=== PATIENT | female | born 1955 | race Caucasian/White ===

== ENCOUNTER → 2016-12-18 | Outpatient (CLI) | payer OTHER ==
--- NOTE | 2016-12-21 12:02 | MM ---
Reason for exam: screening (asymptomatic). Physical Findings: A clinical breast exam by your physician is recommended on an annual basis and results should be correlated with mammographic findings. MG Screening Mammo w CAD Bilateral CC and MLO view(s) were taken. There are scattered fibroglandular densities. No significant changes when compared with prior studies. ASSESSMENT: Benign, BI-RAD 2 RECOMMENDATION: Routine screening mammogram of both breasts in 1 year.
== END | disposition home or self-care (01) ==
LOC: RADMAMWWP 08:50
PROVIDERS: ATTEND Family Medicine
DX: Z12.31 Encounter for screening mammogram for malignant neoplasm of breast (principal)

== ENCOUNTER → 2019-05-22 | Outpatient (CLI) | payer BC ==
--- NOTE | 2019-05-23 10:50 | MM ---
Reason for exam: screening (asymptomatic). Last mammogram was performed 2 years and 5 months ago. History: Patient is nulliparous. Benign cyst aspiration of both breasts, 1999. Physical Findings: A clinical breast exam by your physician is recommended on an annual basis and results should be correlated with mammographic findings. MG Screening Mammo w CAD Bilateral CC and MLO view(s) were taken. XCCL view(s) were taken of the left breast. Prior study comparison: December 18, 2016, bilateral MG screening mammo w CAD. There are scattered fibroglandular densities. There is no discrete abnormality. No significant changes when compared with prior studies. ASSESSMENT: Negative, BI-RAD 1 RECOMMENDATION: Routine screening mammogram of both breasts in 1 year.
== END | disposition home or self-care (01) ==
LOC: RADMAMWWP 09:49
PROVIDERS: ATTEND Family Medicine
DX: Z12.31 Encounter for screening mammogram for malignant neoplasm of breast (principal)
CPT/HCPCS: 77067

== ENCOUNTER → 2021-12-12 | Outpatient (CLI) | payer MEDICARE, BC ==
--- NOTE | 2021-12-15 19:00 | MM ---
Reason for Exam: Screening (asymptomatic). Last mammogram was performed 2 year(s) and 6 month(s) ago. Patient History: Menarche at age 13. Patient has no children. Hysterectomy at age 40. Postmenopausal. 1999, Bilateral Benign Cyst Aspiration. Risk Values: Eva 5 year model risk: 1.9%. NCI Lifetime model risk: 6.7%. Prior Study Comparison: 12/18/2016 Bilateral Screening Mammogram, [facility]. 05/22/2019 Bilateral Screening Mammogram, [facility]. Tissue Density: There are scattered fibroglandular densities. Findings: Analyzed By CAD. There is no suspicious group of microcalcifications or new suspicious mass in either breast. Overall Assessment: Negative, BI-RAD 1 Management: Screening Mammogram of both breasts in 1 year. 1. Patient should continue monthly self breast exams. 2. A clinical breast exam by your physician is recommended on an annual basis. 3. This exam should not preclude additional follow-up of suspicious palpable abnormalities. Electronically signed and approved by: Scarlet Schafer M.D. Radiologist
== END | disposition home or self-care (01) ==
LOC: RADMAMWWP 16:00
PROVIDERS: ATTEND Family Medicine
DX: Z12.31 Encounter for screening mammogram for malignant neoplasm of breast (principal)
CPT/HCPCS: 77063; 77067

== ENCOUNTER 2022-01-28 08:03 | Day surgery (SDC) | payer MEDICARE, BC ==
[2022-01-28 08:41] VITALS: PULSE 82; TEMP 97.4
[2022-01-28] MEDS: LACTATED RINGERS 1,000 ML IV SCH ×2 (08:43→09:16)
[2022-01-28] MEDS ORDERED: PROPOFOL 10 MG/ML 20 ML VIAL IV ONE (09:21)
--- NOTE | 2022-01-28 09:35 | P.PCN ---
Date of Procedure: 01/28/22 Procedure(s) Performed: BRIEF HISTORY: Patient is a 66-year-old pleasant White female scheduled for an elective colonoscopy as a part of screening for colon cancer. PROCEDURE PERFORMED: Colonoscopy. PREOPERATIVE DIAGNOSIS: Screening for colon cancer. IV sedation per Anesthesia. PROCEDURE: After informed consent was obtained, the patient, was brought into the endoscopy unit. IV sedation was administered by Anesthesia under continuous monitoring. Digital rectal examination was normal. Initially the Olympus CF-160 flexible video colonoscope was then inserted in the rectum, gradually advanced into the cecum without any difficulty. Careful examination was performed as the scope was gradually being withdrawn. Ileocecal valve and the appendiceal orifice were visualized and appeared normal. Prep was excellent. Mucosa of the cecum, ascending colon, transverse colon, descending colon, sigmoid colon, and rectum appeared normal. Retroflexion was performed in the rectum and no lesions were seen. The patient tolerated the procedure well. IMPRESSION: Normal-appearing colon from rectum to cecum with no evidence of colorectal neoplasia . RECOMMENDATIONS: Findings of this examination were discussed with the patient well as her family. She was advised to have a repeat screening colonoscopy in 10 years..
[2022-01-28 09:57] VITALS: BP 111/76; RESP 15
== END 2022-01-28 10:08 | disposition home or self-care (01) ==
LOC: ORWHC2ENDO 08:03
PROVIDERS: ATTEND Internal Medicine Gastroenterology
DX: Z12.11 Encounter for screening for malignant neoplasm of colon (principal); J44.9 Chronic obstructive pulmonary disease, unspecified; F17.210 Nicotine dependence, cigarettes, uncomplicated; Z79.82 Long term (current) use of aspirin
CPT/HCPCS: J2704; G0121

== ENCOUNTER → 2022-01-29 | Outpatient (CLI) | payer MEDICARE, BC ==
--- NOTE | 2022-01-29 16:02 | US ---
EXAMINATION TYPE: US thyroid st tissue head/neck DATE OF EXAM: 01/29/2022 COMPARISON: NONE CLINICAL HISTORY: R22.1 SWELLING, MASS AND LUMP IN NECK. lump right neck for 4 days Scanned with patient's area of concern, right neck palpable, thyroid nodule visualized RIGHT Thyroid: # of nodules measured on right: 1 1. 2.9 X 3.3 x 2.9 cm, lower , mixed cystic and solid, isoechoic nodule, which is taller than wide, with smooth margins, without echogenic foci. TR 4 lesion Prior size: no prior Complete thyroid not imaged, only palpable requested. IMPRESSION: As above. Ultrasound-guided fine-needle aspiration is advised.
== END | disposition home or self-care (01) ==
LOC: RADUSWWP 15:24
PROVIDERS: ATTEND Family Medicine
DX: R22.1 Localized swelling, mass and lump, neck (principal)
CPT/HCPCS: 76536

== ENCOUNTER → 2022-12-21 | Outpatient (CLI) | payer MEDICARE, BC ==
--- NOTE | 2022-12-21 11:45 | US ---
EXAMINATION TYPE: US thyroid st tissue head/neck DATE OF EXAM: 12/21/2022 COMPARISON: 07/02/2022 CLINICAL INDICATION: Female, 67 years old with history of E04.1 SINGLE THYROID NODULE; hx of Rt thyro id nodules GLAND SIZE: Right Lobe: 5.4x1.7x2.2 cm Overall Parenchyma: homogenous Left Lobe: 4.9x1.9x1.8 cm Overall Parenchyma: slightly heterogenous Isthmus Thickness: 0.4 cm NODULES RIGHT: # of nodules measured on right: 2 1. 0.5 X 0.4 x 0.7 cm, mid mid, Prior size: 0.6 x 0.4 x 0.7 cm TIRADS Score: 4 TIRADS Category 4: Moderately Suspicious Composition: Solid or almost completely solid (2 points). Echogenicity: Hypoechoic (2 points). Shape: Wider than tall (0 points). Margin: Smooth (0 points). Echogenic foci: None or large comet-tail artifacts (0 points) Recommendation: If >1.5cm: FNA; If >1cm: Follow up at 1,2, 3,5 years 2. 0.9 X 1.1 x 0.8 cm, lower mid, Prior size: 1.3 x 1.5 x 1.1 cm TIRADS Score: 4 TIRADS Category 4: Moderately Suspicious Composition: Solid or almost completely solid (2 points). Echogenicity: Hypoechoic (2 points). Shape: Wider than tall (0 points). Margin: Smooth (0 points). Echogenic foci: None or large comet-tail artifacts (0 points) Recommendation: If >1.5cm: FNA; If >1cm: Follow up at 1,2, 3,5 years LEFT: # of nodules measured on left: 0 ISTHMUS: # of nodules measured in the isthmus: 0 Bilateral neck scanned, no evidence of lymphadenopathy. IMPRESSION: Right thyroid nodules which meet criteria for follow-up in 1 year.
== END | disposition home or self-care (01) ==
LOC: RADUSWWP 09:25
PROVIDERS: ATTEND Otolaryngology
DX: E04.2 Nontoxic multinodular goiter (principal)
CPT/HCPCS: 76536

== ENCOUNTER → 2023-03-03 | Outpatient (CLI) | payer MEDICARE, BC ==
--- NOTE | 2023-03-04 10:49 | MM ---
Reason for Exam: Screening (asymptomatic). Last mammogram was performed 1 year(s) and 3 month(s) ago. Patient History: Menarche at age 13. Patient has no children. Hysterectomy at age 40. Postmenopausal. 1999, Bilateral Benign Cyst Aspiration. Risk Values: Eva 5 year model risk: 1.9%. NCI Lifetime model risk: 6.4%. Prior Study Comparison: 12/18/2016 Bilateral Screening Mammogram, [facility]. 05/22/2019 Bilateral Screening Mammogram, [facility]. 12/12/2021 Bilateral MG 3D screening mammo w/cad, [facility]. Tissue Density: The breast tissue is almost entirely fat. Findings: Analyzed By CAD. There is no suspicious group of microcalcifications or new suspicious mass. Overall Assessment: Negative, BI-RAD 1 Management: Screening Mammogram of both breasts in [address] [facility] will attempt to contact patient to return for supplemental views and ultrasound if indicated. Patient should continue monthly self-breast exams. A clinical breast exam by your physician is recommended on an annual basis. This exam should not preclude additional follow-up of suspicious palpable abnormalities. Note on Eva scores and lifetime risk: 1. A Eva score greater than 3% is considered moderate risk. If this is the case, consider specialist referral to assess eligibility for a risk reducing agent. 2. If overall lifetime risk for the development of breast cancer is 20% or higher, the patient may qualify for future screening with alternating mammogram and breast MRI. Electronically signed and approved by: Bob Chavez DO
== END | disposition home or self-care (01) ==
LOC: RADMAMWWP 07:29
PROVIDERS: ATTEND Family Medicine
DX: Z12.31 Encounter for screening mammogram for malignant neoplasm of breast (principal); Z78.0 Asymptomatic menopausal state
CPT/HCPCS: 77067

== ENCOUNTER → 2023-03-09 | Outpatient (CLI) | payer MEDICARE, BC ==
--- NOTE | 2023-03-09 16:45 | CTL ---
EXAMINATION TYPE: CT Low Dose Lung DATE OF EXAM: 03/09/2023 4:13 PM CLINICAL INDICATION:Female, 67 years old with history of F17.210,Z12.2 ENCNTR SCREEN FOR MALIGNANT NE OPLASM; current smoker, 1 pack a day x40 years. , history of tobacco use. COMPARISON: None. TECHNIQUE: Multiple axial non-contrast scans were obtained from approximately the lung apices through the upper abdomen. Coronal and sagittal reformatted images were obtained. Low dose technique was uti lized. CT DLP: 66.60 mGycm, Automated exposure control for dose reduction was used. CT Contrast: Contrast used: None Oral contrast used: None FINDINGS: ======== Lack of intravenous contrast and low dose technique limits the evaluation of the vascular and soft ti ssue structures. LUNGS: No evidence of pulmonary fibrosis. No evidence of focal consolidation, pneumothorax or pleural effusion. Moderate emphysema changes. Nodules: RUL: None. RML: None. RLL: None. STEPHANIE: None. LLL: None. AIRWAY: Patent and unremarkable. HEART: Size within normal limits. Mild coronary artery calcifications. MEDIASTINUM: No gross evidence of adenopathy. VASCULATURE: No aortic aneurysm. MUSCULOSKELETAL: No acute osseous abnormalities SOFT TISSUES/LYMPH NODES: Unremarkable. LOWER NECK: No significant findings. UPPER ABDOMEN: Probable right central IMPRESSION: 1. No clinically significant pulmonary nodules. 2. Moderate emphysema predominantly in the lung apices. CT LUNG RAD AND CT CHEST RECOMMENDATION: Lung-Rad 1 Negative: Continue annual screening with LDCT in 12 months. S Modifier (other clinically significant findings): None Recommend smoking cessation (if current smoker), or continuation of smoking cessation (if prior smoke r). Annual screening for lung cancer with low-dose computed tomography is recommended in adults ages 55 to 77 years who have a 30 pack-year smoking history and currently smoke or have quit within the pa st 15 years. Screening should be discontinued once a person has not smoked for 15 years or develops a health problem that substantially limits life expectancy or the ability or willingness to have curat emily lung surgery. Lung rads 2021 [email or web address]
== END | disposition home or self-care (01) ==
LOC: RADCTMAIN 15:40
PROVIDERS: ATTEND Family Medicine
DX: Z12.2 Encounter for screening for malignant neoplasm of respiratory organs (principal); J43.9 Emphysema, unspecified; F17.210 Nicotine dependence, cigarettes, uncomplicated
CPT/HCPCS: 71271

== ENCOUNTER → 2023-09-14 | Outpatient (CLI) | payer MEDICARE, BC ==
--- NOTE | 2023-09-15 08:26 | US ---
EXAMINATION TYPE: US carotid duplex BILAT DATE OF EXAM: 09/14/2023 COMPARISON: NONE CLINICAL INDICATION: Female, 67 years old with history of Z91.89 OTH PERSONAL RISK FACTORS, NOT ELSEW HERE CL; High risk of cardiovascular disease per order. Hyperlipidemia, current smoker. TECHNIQUE: Carotid duplex ultrasound examination. Indirect Doppler criteria was utilized. FINDINGS: EXAM MEASUREMENTS: RIGHT: Peak Systolic Velocity (PSV) cm/sec ----- Right CCA: 73.2 ----- Right ICA: 94.4 ----- Right ECA: 66.2 ICA/CCA ratio: 1.3 RIGHT: End Diastole cm/sec ----- Right CCA: 25.9 ----- Right ICA: 37.3 ----- Right ECA: 14.7 LEFT: Peak Systolic Velocity (PSV) cm/sec ----- Left CCA: 75.7 ----- Left ICA: 69.4 ----- Left ECA: 78.2 ICA/CCA ratio: 0.9 LEFT: End Diastole cm/sec ----- Left CCA: 29.6 ----- Left ICA: 31.1 ----- Left ECA: 13.6 VERTEBRALS (direction of flow): Right Vertebral: Antegrade Left Vertebral: Antegrade Rhythm: Normal MARINE PROPULSION TECHNICIAN NOTES: Plaque seen within right bulb. No elevated velocities at this time. Smaller left c arotid plaque is evident. IMPRESSION: Criteria for Assigning % of Stenosis / Diameter reduction (Estimation based on the indirect measurements of the internal carotid artery velocities (ICA PSV). 1. Normal (no stenosis)=ICA PSV < 125 cm/s: ratio < 2.0: ICA EDV<40 cm/s. 2. Less than 50% stenosis=ICA PSV < 125 cm/s: ratio < 2.0: ICA EDV<40 cm/s. 3. 50 to 69% stenosis=ICA PSV of 125 to 230 cm/s: ration 2.0 ? 4.0: ICA EDV 40-100 cm/s. 4. Greater than 70% stenosis to near occlusion= ICA PSV > 230 cm/s: ratio > 4.0: ICA EDV > 100 cm/s. 5. Near occlusion= ICA PSV velocities may be low or undetectable: variable ratio and ICA EDV. 6. Total occlusion=unable to detect flow.
== END | disposition home or self-care (01) ==
LOC: RADUSWWP 15:29
PROVIDERS: ATTEND Family Medicine
DX: E78.5 Hyperlipidemia, unspecified (principal); Z91.89 Other specified personal risk factors, not elsewhere classified; Z87.891 Personal history of nicotine dependence
CPT/HCPCS: 93880

== ENCOUNTER → 2023-12-27 | Outpatient (CLI) | payer MEDICARE, BC ==
--- NOTE | 2024-02-16 09:51 | US ---
Site ID [facility] Alina Elkins ID [id number] Age/Gender: 68Y, F Order # N/A Procedure US thyroid st tissue head/neck Date 12/27/2023 4:21:00 PM EXAMINATION TYPE: US thyroid st tissue head/neck DATE OF EXAM: 01/10/2024 COMPARISON: Thyroid ultrasound 12/21/2022, 07/02/2022, 01/29/2022, FNA ultrasound 03/17/2022. CLINICAL INDICATION: Female, 68 year old with history of right thyroid nodules, follow-up. GLAND SIZE: Right Lobe: 5.5 x 2.3 x 1.7 cm Overall Parenchyma: homogeneous Left Lobe: 4.8 x 1.7 x 1.5 cm Overall Parenchyma: homogeneous Isthmus Thickness: 0.3 cm NODULES RIGHT: # of nodules measured on right: 2 1. 0.9 X 0.7 x 1.0 cm, mid , solid or almost completely solid, hypoechoic nodule, which is wider th an tall, with smooth margins, with echogenic foci. Previously biopsied. TR 4. Prior size: 0.9 x 0.8 x 1.1 cm 2. 0.6 X 0.4 x 0.7 cm, lower , solid or almost completely solid, hypoechoic nodule, which is wider than tall, with smooth margins, without echogenic foci. TR 4. Prior size: 0.5 x 0.4 x 0.7 cm LEFT: # of nodules measured on left: 0 ISTHMUS: # of nodules measured in the isthmus: 0 Bilateral neck scanned, no evidence of lymphadenopathy. IMPRESSION: Stable right thyroid nodules. No new or enlarging thyroid nodules. Follow-up thyroid ultrasound in on e year is recommended.
== END | disposition home or self-care (01) ==
LOC: RADUSWWP 12:00
PROVIDERS: ATTEND Family Medicine
DX: E04.1 Nontoxic single thyroid nodule
CPT/HCPCS: 76536

== ENCOUNTER → 2024-03-10 | Outpatient (CLI) | payer MEDICARE, BC ==
--- NOTE | 2024-03-10 10:37 | CTL ---
EXAMINATION TYPE: CT Low Dose Lung DATE OF EXAM ORDERED: 03/10/2024 COMPARISON: CT low-dose lung 03/09/2023 CLINICAL INDICATION: Female, 68 years old with history of Z12.2 SCREENING F17.210 NICOTINE DEPENDENCE ; PHH, personal hx of nicotine dependence 1/2ppd X 40 years current smoker, Lung cancer screening, Hi story of Smoking/tobacco use. TECHNIQUE: Low dose computed tomography scan was performed through the chest at 1 mm thick sections a nd reconstructed images in multiple planes at 1 mm and [address] DLP: 74.[address] CTDI: 2.1 mGy Automated exposure control for dose reduction was used. CT DIAGNOSTIC QUALITY: Satisfactory FINDINGS: Nodules: No clinically significant pulmonary nodules. LUNGS: COPD: Severity: Mild Fibrosis: Severity: None Lymph nodes: None Other findings: Linear scarring and atelectasis within the lingula RIGHT PLEURAL SPACE: Effusion: None Calcification: None Thickening: None Pneumothorax: None LEFT PLEURAL SPACE: Effusion: None Calcification: None Thickening: None Pneumothorax: None HEART: Heart Size: Normal Coronary Calcification: Small Pericardial Effusion: None OTHER FINDINGS: Upper abdomen: Stable central hepatic 1.9 cm cyst. Bony thorax: Minimal multilevel degenerative disc disease. Supraclavicular region: None Other: None IMPRESSION: 1. No clinically significant pulmonary nodules. 2. Mild COPD changes. CT LUNG RAD AND CT CHEST RECOMMENDATION: Lung-Rad 1 Negative: Continue annual screening with LDCT in 12 months. S Modifier (other clinically significant findings): None [facility], , 03/10/2024 10:34 AM
--- NOTE | 2024-03-13 18:06 | MM ---
Reason for Exam: Screening (asymptomatic). Last screening mammogram was performed 12 month(s) ago. Patient History: Menarche at age 13. Patient has no children. Hysterectomy at age 40. Postmenopausal. 1999, Bilateral Benign Cyst Aspiration. Risk Values: Eva 5 year model risk: 1.9%. NCI Lifetime model risk: 6.2%. Prior Study Comparison: 05/22/2019 Bilateral Screening Mammogram, [facility]. 12/12/2021 Bilateral MG 3D screening mammo w/cad, [facility]. 03/03/2023 Bilateral MG screening mammo w CAD, [facility]. Tissue Density: There are scattered areas of fibroglandular density. Findings: Analyzed By CAD. Unchanged lateral asymmetric density on the right. There is no suspicious group of microcalcifications or new suspicious mass in either breast. Overall Assessment: Benign, BI-RAD 2 Management: Screening Mammogram of both breasts in 1 year. . Patient should continue monthly self-breast exams. A clinical breast exam by your physician is recommended on an annual basis. This exam should not preclude additional follow-up of suspicious palpable abnormalities. Note on Eva scores and lifetime risk: 1. A Eva score greater than 3% is considered moderate risk. If this is the case, consider specialist referral to assess eligibility for a risk reducing agent. 2. If overall lifetime risk for the development of breast cancer is 20% or higher, the patient may qualify for future screening with alternating mammogram and breast MRI. [facility], , 03/13/2024 6:03 PM. Electronically signed and approved by: Scarlet Schafer M.D. Radiologist
== END | disposition home or self-care (01) ==
LOC: RADMAMWWP 09:34
PROVIDERS: ATTEND Family Medicine
CPT/HCPCS: 71271; 77063; 77067

== ENCOUNTER → 2024-08-11 | Outpatient (CLI) | payer MEDICARE, BC ==
--- NOTE | 2024-08-11 13:41 | MR ---
EXAMINATION TYPE: MR shoulder RT wo con DATE OF EXAM: 08/11/2024 1:33 PM COMPARISON: Outside right shoulder x-ray June 26, 2024 CLINICAL INDICATION: Female, 68 years old with history of M25.511 PAIN IN RIGHT SHOULDER, Right shoul efren pain, decreased ROM x 6 mos, no trauma. IV Contrast: cc (None if empty) TECHNIQUE: Multiplanar, multisequence imaging of the right shoulder is performed without contrast. FINDINGS: Rotator Cuff: Some increased signal in the infraspinatus tendon. More prominent increased signal in t he supraspinatus tendon. Some heterogeneous signal of the subscapularis tendon. Rotator cuff muscle b ulk is preserved. Acromioclavicular Joint: Moderate to severe narrowing and superior capsular hypertrophy with mild to moderate spurring at the acromioclavicular joint. Underlying fat plane is maintained. Glenohumeral Joint: Small to moderate size joint effusion. There is significant narrowing with bony p rojection from the inferior medial aspect of the humeral head. Labrum: Increased signal superior labrum consistent with tear. Biceps Tendon: The long head of biceps is in normal location within bicipital groove. Intermediate si gnal in the intracapsular portion is noted. Bone marrow signal: Subchondral cystic change involving the anterior aspect of the osseous glenoid an d the lateral aspect of the humeral head. Other: No additional significant abnormality is appreciated. IMPRESSION: 1. Moderate to advanced degenerative changes are present as detailed above. 2. Superior labral tear is seen. 3. Tendinosis of the rotator cuff tendons without significant tear. 4. Tendinosis of the intracapsular portion long head of biceps tendon. [facility], , 08/11/2024 1:39 PM
== END | disposition home or self-care (01) ==
LOC: RADMRIMAIN 12:58
PROVIDERS: ATTEND Orthopaedic Surgery
DX: S43.431A Superior glenoid labrum lesion of right shoulder, initial encounter (principal); M67.813 Other specified disorders of tendon, right shoulder; M19.011 Primary osteoarthritis, right shoulder; M25.411 Effusion, right shoulder; X58.XXXA Exposure to other specified factors, initial encounter

== ENCOUNTER 2024-09-19 10:29 | Day surgery (SDC) | payer MEDICARE, BC ==
--- NOTE | 2024-09-18 08:31 | P.HPOR ---
History of Present Illness H&P Date: 09/18/24 Chief Complaint: Right shoulder pain The patient is a 68-year-old female who presents with progressive right shoulder pain for the past year worsening over the past 3 months. She notes anterior lateral pain with overhead use and at night. She has tried therapy in addition to medications without much relief. She notes daily pain that limits her. Review of Systems per HPI Past Medical History Past Medical History: Cancer, COPD, Hyperlipidemia, Thyroid Disorder Additional Past Medical History / Comment(s): hx thyroid nodule; hx skin ca History of Any Multi-Drug Resistant Organisms: None Reported Past Surgical History: Appendectomy, Hysterectomy Additional Past Surgical History / Comment(s): benign breast biopsy x2; trent carpal tunnel surg; thyroid cyst aspirated; skin ca removed off face; trent cataracts removed Past Anesthesia/Blood Transfusion Reactions: No Reported Reaction Smoking Status: Current every day smoker - Past Family History Father Family Medical History: Cancer Additional Family Medical History / Comment(s): throat Medications and Allergies Home Medications Medication Instructions Recorded Confirmed Type Aspirin [Adult Low Dose Aspirin EC] 81 mg PO DAILY 01/27/22 09/14/24 History Calcium Carbonate [Calcium] 1 tab PO DAILY 01/27/22 09/14/24 History Cholecalciferol (Vitamin D3) 125 mcg PO DAILY 03/12/22 09/14/24 History [Vitamin D3 (125 MCG = 5,000 IU)] Albuterol Inhaler [Ventolin Hfa 1 - 2 puff INHALATION Q6H PRN 09/14/24 09/14/24 History Inhaler] Budesonide/Glycopyr/Formoterol 1 puff INHALATION DAILY PRN 09/14/24 09/14/24 History [Breztri Aerosphere Inhaler] Magnesium Glycinate 400 mg PO DAILY 09/14/24 09/14/24 History Rosuvastatin [Crestor] 10 mg PO HS 09/14/24 09/14/24 History Vitamin K2 [Vitamin K-2] 100 mcg PO DAILY 09/14/24 09/14/24 History Allergies Allergy/AdvReac Type Severity Reaction Status Date / Time No Known Allergies Allergy Verified 09/14/24 14:59 Physical Examination - Shoulder right Tenderness with palpation: anterior, bicipital groove Pain: with abduction, with forward flexion ROM: forward flexion: 140 degrees ROM: internal rotation: lower lumbar ROM: external rotation: 50 degrees Crepitus with motion: Yes Tests: internal impingement tests: positive, external impingment tests: positive Results The patient is a well-developed well-nourished female approximately 5 foot 4, 158 pounds of mesomorphic habitus. HEENT exam is nonfocal, neck is supple. She is tender about the right shoulder anterior subacromial space. Moderate crepitus is noted. Impingement test, Neer test, and Speed test are positive. Her distal neurovascular exam appears intact in the right upper extremity. - Diagnostic results Shoulder MRI: image reviewed (MRI of the right shoulder shows evidence of increased signal involving the rotator cuff insertion along with a superior labral tear. Mild glenohumeral joint osteoarthrosis is noted.) Assessment and Plan Assessment: Right shoulder impingement Right proximal bicipital tendinosis/superior labral tear Plan: I talked to the patient at length regarding her condition along with treatment options. At this point she is quite symptomatic despite conservative measures. After a thorough discussion she opts to proceed with surgery. We will plan to proceed with arthroscopy of the right shoulder with probable subacromial decompression, rotator cuff debridement versus repair, in addition to possible biceps tenotomy. Risks and benefits were discussed at length in layman's terms. We will likely perform that as an outpatient procedure.
[~2024-09-19 10:29] MED LIST: HYDROmorphone 0.5 MG/0.5 ML SYRINGE IVP PRN; LIDOCAINE 1% (10MG/ML) FOR IV START INTRADERMA PRN
[2024-09-19 11:05] VITALS: RESP 16; TEMP 96.8
[2024-09-19] MEDS: DEXAMETHASONE SOD PHOSPHATE 4 MG/ML 1 ML VIAL IV ONE (11:20)
[2024-09-19] MEDS: ONDANSETRON 4 MG/2 ML VIAL IVP ONE (11:20)
[2024-09-19] MEDS: LACTATED RINGERS 1,000 ML IV SCH (11:21)
[2024-09-19] MEDS: MIDAZOLAM 2 MG/2 ML VIAL IV PRN (11:33)
[2024-09-19] MEDS: IV FLUID CONTINUATION 1,000 ML IV ONE (11:43)
[2024-09-19] MEDS: fentaNYL (PF) 50 MCG/ML 2 ML AMP IVP PRN (11:46)
--- NOTE | 2024-09-19 12:00 | P.ANPRN ---
Procedure Note - Anesthesia - Nerve Block Performed Right Interscalene Single Time Out Performed: Yes Date of Procedure: 09/19/24 Procedure Start Time: 11:33 Procedure Stop Time: 11:40 Location of Patient: PreOp Indication: Acute Post-Operative Pain, Requested by Surgeon Specifically requested for management of pain by : Chester García Sedation Type: Sedate with meaningful contact maintained Preparation: Sterile Prep Position: Sitting Catheter: None Needle Types: Pajunk Needle Gauge: 20 Ultrasound used to visualize needle placement: Yes Ultrasound used to observe medication spread: Yes Injectate: 0.5% Ropivacaine (see comment for volume) Blood Aspirated: No Pain Paresthesia on Injection Noted: No Resistance on Injection: Normal Image Stored and Saved: Yes Events: Uneventful and Well Tolerated (30 cc plus decadrone 4 mg)
[2024-09-19] MEDS ORDERED: LIDOCAINE 4% LTA KIT (4 ML) TOPICAL ONE (13:33)
[2024-09-19] MEDS ORDERED: SUCCINYLCHOLINE CHLORIDE 200 MG/10 ML VIAL IV ONE (13:33)
[2024-09-19] MEDS ORDERED: ROPIVACAINE 5 MG/ML 30 ML VIAL ONE (13:33)
[2024-09-19] MEDS ORDERED: DEXAMETHASONE SOD PHOSPHATE 4 MG/ML 1 ML VIAL ONE (13:33)
[2024-09-19] MEDS ORDERED: PROPOFOL 10 MG/ML 20 ML VIAL IV ONE (13:33)
[2024-09-19] MEDS ORDERED: ePHEDrine 50 MG/ML 1 ML VIAL ONE (13:33)
[2024-09-19] MEDS ORDERED: MIDAZOLAM 2 MG/2 ML VIAL ONE (13:33)
[2024-09-19] MEDS ORDERED: LIDOCAINE 1% INJ 10MG/ML (20 ML MDV) ONE (13:33)
[2024-09-19] MEDS ORDERED: PHENYLEPHRINE-0.9% NACL SYG 1,000 MCG/10 ML SYRINGE ONE (13:33)
[2024-09-19] MEDS: ceFAZolin 2 GM in DEXTROSE 5% IN WATER 50 ML IVPB PRN (13:37)
[2024-09-19] MEDS: EPINEPHrine (PF) 1 ML in SODIUM CHLORIDE 0.9% IRRIGATIO 3,000 ML IRRIGATION ONE ×4 (13:48)
[2024-09-19] MEDS: LACTATED RINGERS 1,000 ML IV ONE (14:28)
--- NOTE | 2024-09-19 14:42 | P.OP ---
Date of Procedure: 09/19/24 Preoperative Diagnosis: Right shoulder impingement Postoperative Diagnosis: Right shoulder partial-thickness rotator cuff tear, type I superior labral tear, bursitis Procedure(s) Performed: Right shoulder arthroscopic subacromial decompression/rotator cuff debridement/superior labral debridement Anesthesia: dom GOODWIN Surgeon: Chester García [employer]: Ricardo Stanford Estimated Blood Loss (ml): 10 Pathology: none sent Condition: stable Disposition: PACU Indications for Procedure: The patient is a 68-year-old female who presents with persistent/progressive right shoulder pain despite conservative measures. A discussion of the risks and benefits of operative intervention versus continued conservative measures was made with the patient. She opted to proceed with surgery. Operative risks include infection, neurovascular injury, developing blood clots, possible incomplete resolution of symptoms, possible worsening of symptoms need for subsequent procedures was discussed. Informed consent was obtained. Operative Findings: As below Description of Procedure: The patient was brought to the operating room, and after induction of general anesthesia was placed in a beachchair position. A preoperative interscalene block was placed for postoperative analgesia. I examined the right shoulder. There was no gross block to passive motion or gross glenohumeral instability. The right upper extremity was prepped and draped in normal fashion. The bony outlines the acromion, distal clavicle, and coracoid process were outlined with a skin marker. The glenohumeral joint was inflated with 50 mL of saline utilizing a spinal needle from posterior approach. A posterior portal was made through a 5 mm skin incision 1 cm medial and inferior to the posterior lateral border time. A blunt trocar was used to easily into the joint. Diagnostic arthroscopy was performed. An anterior portal was made just lateral to the coracoid process entering the joint above the subscapularis tendon. The pina bscapularis tendon appeared to be intact. Anterior labrum was intact. The inferior recess was inspected. The posterior labrum was intact. On inspection of the biceps, no significant intra-articular pathology was noted. A type I superior labral tear was noted. This was debrided back to stable base with a motorized shaver. The remaining labrum was stable and intact. On inspection the rotator cuff, a partial-thickness tear involving the anterior supraspinatus was noted. This is debrided with a motorized shaver back to a stable base. This involves less than 20% of the tendon thickness. The arthroscope was then placed into the subacromial space. Significant subacromial bursitis was noted. The soft tissue on the undersurface of the acromion was debrided with a motorized shaver and electrocautery clearly defining the anterior medial and lateral borders as well as the distal clavicle. An anterior inferior acromioplasty was performed with a motorized giuseppe starting anterolateral, then extending this posteriorly, then extending this medially. I converted to a flat acromion and this was verified in the posterior and lateral viewing portals. The bursal tissue was debrided with a motorized shaver. The rotator cuff was clearly identified and was felt to be intact on the bursal surface. There was some scuffing of the anterior supraspinatus however no feliciano tearing. The arthr oscope was then removed. The portals were closed with simple 3-0 nylon sutures. A sterile dressing was applied in addition to a sling. The patient was then awoken from general anesthesia and transferred to recovery room in good condition. Blood loss was estimated at 10 mL. No complications were incurred. Sponge and needle counts were correct in the case. Ricardo PLASCENCIA assisted and the major components of the case to include arm positioning, decompression, and debridement.
[2024-09-19 15:36] VITALS: PULSE 74
[2024-09-19 15:46] VITALS: BP 111/74
== END 2024-09-19 16:05 | disposition home or self-care (01) ==
LOC: OR 10:29
PROVIDERS: ATTEND Orthopaedic Surgery
DX: M75.111 Incomplete rotator cuff tear or rupture of right shoulder, not specified as traumatic (principal); S43.431A Superior glenoid labrum lesion of right shoulder, initial encounter; M25.811 Other specified joint disorders, right shoulder; M75.51 Bursitis of right shoulder; J44.9 Chronic obstructive pulmonary disease, unspecified; E78.5 Hyperlipidemia, unspecified; G89.18 Other acute postprocedural pain; F17.200 Nicotine dependence, unspecified, uncomplicated; Z79.82 Long term (current) use of aspirin; Z79.51 Long term (current) use of inhaled steroids
CPT/HCPCS: 29823; 29826; 29827; 64415; J2250; J0330; J1100; J0690; J2405; J0171; J2003; J3010; J2795; J2704; J2371